=== PATIENT | female | born 1965 | race Caucasian/White ===

== ENCOUNTER 2024-05-11 20:13 | Observation (INO) | payer BC, SELFPAY ==
[2024-05-11 13:16] VITALS: BP 154/97
--- NOTE | 2024-05-11 15:44 | ED.GENMED ---
History of Present Illness
<Lacy Abdullahi PA-C - Last Filed: 05/11/24 22:45>
General
Chief Complaint: Ear Problem
Source: patient
Exam Limitations: none
Time Seen by Provider: 05/11/24 15:44
Nursing documentation reviewed up to this point in time: agreed with
History of Present Illness
History of Present Illness:
This is a 58-year-old female with a past medical history of glaucoma, asthma, who presents today to emergency department with right ear pain and drainage for the past week. Patient originally presented to [facility] and was sent home with
neomycin polymyxin drops with a steroid component. Patient did not receive any oral antibiotics. Patient states that the pain has been getting more intense and she started to have a lot of purulent drainage from the ear. Patient denies any
changes to her hearing. Patient states that she had a fever at home, she does not recall the temperature at the time. Patient denies any cough or upper respiratory symptoms. Denies any chest pain. Denies any difficulty breathing or difficulty
swallowing. She states that she also has a lot of pain behind the ear as well.
Past History
<Lacy Abdullahi PA-C - Last Filed: 05/11/24 22:45>
Past History
ED Past Medical History: Asthma, GERD and Other (Lumbar disc disease, RSD)
ED Past Surgical History: Gynecological (D&C, ovarian cyst removal) and Other (Epidural steroid injections and nerve blocks, lumbar spine, 1994)
Social History
Tobacco: Non-smoker
Alcohol: Occasional
Drug: None
Personal: Other (Noncontributory)
Living: with family
Employment: Employed
Family History
Family History: Asthma and Other
Review of Systems
<Lacy Abdullahi PA-C - Last Filed: 05/11/24 22:45>
Review of Systems
All Other Systems: ROS reviewed and negative except as documented in HPI and ROS
Phy Exam
<JENNIFER Hargrove Last Filed: 05/11/24 22:45>
Physical Exam
Physical Exam:
General: Patient is well appearing and in no acute distress; non-toxic
Skin: Warm and dry, no rashes or lesions
Head: Tenderness to palpation of the right mastoid process with some mild erythema noted
Eyes: Sclera non-icteric. EOMs intact.
Ears: Swelling noted to right external ear canal, unable to visualize right tympanic membrane, purulent drainage noted from right canal
Cardiac: Tachycardia noted otherwise regular rhythm, no murmurs
Peripheral Vascular: No lower extremity swelling or edema
Pulm: Normal respiratory effort, no wheezes, rales, rhonchi
Neuro: CN II-XII intact, no focal neurologic deficits.
Psychiatric: Appropriate mood and affect.
Course
<JENNIFER Hargrove Filed: 05/11/24 22:45>
Orders/Labs/Results
Orders:
Orders
05/11/24 Dinner
Regular
At Your Request: Full Participation
05/11/24 15:54
CT Facial Bones W/ Iv Contrast Urgent
Comment:
Reason For Exam: right mastoid pain/swelling
Ibuprofen [Motrin] 600 mg PO NOW STA
05/11/24 16:32
Basic Metabolic Panel Urgent
Complete Blood Count/With Diff Urgent
05/11/24 18:22
Acetaminophen [Tylenol] 1,000 mg PO NOW STA
05/11/24 18:32
Oxycodone/Acetaminophen [Percocet 5/325] 1 tablet PO NOW STA
05/11/24 18:34
Oxycodone/Acetaminophen [Percocet 5/325] 1 tablet .ROUTE .STK-MED ONE
05/11/24 19:21
0.9% Sodium Chloride 500 ml [Nss] 500 ml IV BOLUS
Dexamethasone Sod Phosphate [Decadron] 10 mg IV NOW STA
Morphine Sulfate 4 mg IV NOW STA
Piperacillin/Tazo 4.5 Gram [Zosyn] 4.5 gram in 100 ml IV NOW
05/11/24 19:34
Ciprofloxacin HCl [Cipro] 2 dropperett OTIC NOW STA
05/11/24 19:57
Admit/Transfer Patient As Directed
Co-Sign Provider:
Level of Care: Observation services
Assign to:: Medical/Surgical
Physician / Group: hospitalist
Diagnosis: right otomastoiditis
Code Status As Directed
Resuscitation Status: Full Code
PRN Pain Medication Management As Directed
May give lesser potent ordered pain med per pt: Yes
preference::
Protocol:: Medication orders for pain may be administered in a
manner that supports deferring to patient preference
when the pt is:
- Requesting an ordered lesser potent pain medication.
Least to most potent pain medications are defined
as: acetaminophen < NSAID < tramadol < opioids
(morphine, oxycodone, hydromorphone).
- Requesting a lesser dose of the same medication IF
ORDERED.
- Requesting a less intrusive route of administration
if both routes are prescribed by the provider (PO <
IV).
05/11/24 21:22
Acetaminophen [Tylenol] 650 mg PO Q4HPRN PRN
Albuterol [ProAIR HFA INHALER] 2 puff INH R Q6HPRN PRN
Bisacodyl [Dulcolax] 10 mg RECTAL [id number] PRN
Docusate W/Senna [Senokot-S] 1 tablet PO BIDPRN PRN
Fluticasone/Salmeterol 115/21 [Advair Hfa 115/21 Mcg Inhaler] 2 puff INH R BID
Ketorolac [Toradol] 10 mg IV Q6HPRN PRN
Polyethylene Glycol Powder [Miralax] 17 grams PO DAILYPRN PRN
05/11/24 21:22
ENT CONSULT Routine
Consulting Provider: Cliff Lucero
Was physician already notified: Yes
Reason for Consult: right malignant otitis media
Activity As Directed
Activity Level: As Tolerated
Pneumatic Compression Sleeves As Directed
Type: Knee high
Vital Signs As Directed
Frequency: Per unit guidelines
DX Deep Vein Thrombosis Video Routine
05/12/24 02:00
Piperacillin/Tazo 3.375 Gram [Zosyn] 3.375 gram in 50 ml IV Q6H
05/12/24 04:00
Dexamethasone Sod Phosphate [Decadron] 6 mg IV Q8H
Abnormal Lab Results
05/11/24
16:32
WBC 12.2 H 10^3/uL
(4.8-10.8)
Abs Immat Gran (auto) 0.1 H 10^3/uL
(0-0.05)
Absolute Neuts (auto) 10.1 H 10^3/uL
(1.4-6.5)
Absolute Lymphs (auto) 1.0 L 10^3/uL
(1.2-3.4)
Absolute Monos (auto) 0.8 H 10^3/uL
(0.1-0.6)
Immature Gran % 0.8 H %
(0-0.5)
Neutrophils % 82.7 H %
(42.2-75.2)
Lymphocytes % 7.8 L %
(20.5-51.1)
Chloride 97 L mmol/L
(98-107)
Glucose 108 H mg/dl
(70-99)
05/11/24 16:32
05/11/24 16:32
Vital Signs
Initial and Last Documented VS:
Initial Vital Signs
Temp Pulse Resp BP Pulse Ox
98.2 F 105 16 154/97 95
05/11/24 13:16 05/11/24 13:16 05/11/24 13:16 05/11/24 13:16 05/11/24 13:16
Last Documented Vital Signs
Temp Pulse Resp BP Pulse Ox
98.0 F 61 16 144/74 95
05/11/24 21:31 05/11/24 21:45 05/11/24 21:45 05/11/24 18:38 05/11/24 21:45
<Tasha Lyons MD - Last Filed: 05/11/24 16:05>
Orders/Labs/Results
Orders:
Orders
05/11/24 Dinner
Regular
At Your Request: Full Participation
05/11/24 15:54
CT Facial Bones W/ Iv Contrast Urgent
Comment:
Reason For Exam: right mastoid pain/swelling
Ibuprofen [Motrin] 600 mg PO NOW STA
05/11/24 16:32
Basic Metabolic Panel Urgent
Complete Blood Count/With Diff Urgent
05/11/24 18:22
Acetaminophen [Tylenol] 1,000 mg PO NOW STA
05/11/24 18:32
Oxycodone/Acetaminophen [Percocet 5/325] 1 tablet PO NOW STA
05/11/24 18:34
Oxycodone/Acetaminophen [Percocet 5/325] 1 tablet .ROUTE .STK-MED ONE
05/11/24 19:21
0.9% Sodium Chloride 500 ml [Nss] 500 ml IV BOLUS
Dexamethasone Sod Phosphate [Decadron] 10 mg IV NOW STA
Morphine Sulfate 4 mg IV NOW STA
Piperacillin/Tazo 4.5 Gram [Zosyn] 4.5 gram in 100 ml IV NOW
05/11/24 19:34
Ciprofloxacin HCl [Cipro] 2 dropperett OTIC NOW STA
05/11/24 19:57
Admit/Transfer Patient As Directed
Co-Sign Provider:
Level of Care: Observation services
Assign to:: Medical/Surgical
Physician / Group: hospitalist
Diagnosis: right otomastoiditis
Code Status As Directed
Resuscitation Status: Full Code
PRN Pain Medication Management As Directed
May give lesser potent ordered pain med per pt: Yes
preference::
Protocol:: Medication orders for pain may be administered in a
manner that supports deferring to patient preference
when the pt is:
- Requesting an ordered lesser potent pain medication.
Least to most potent pain medications are defined
as: acetaminophen < NSAID < tramadol < opioids
(morphine, oxycodone, hydromorphone).
- Requesting a lesser dose of the same medication IF
ORDERED.
- Requesting a less intrusive route of administration
if both routes are prescribed by the provider (PO <
IV).
05/11/24 21:22
Acetaminophen [Tylenol] 650 mg PO Q4HPRN PRN
Albuterol [ProAIR HFA INHALER] 2 puff INH R Q6HPRN PRN
Bisacodyl [Dulcolax] 10 mg RECTAL [id number] PRN
Docusate W/Senna [Senokot-S] 1 tablet PO BIDPRN PRN
Fluticasone/Salmeterol 115/21 [Advair Hfa 115/21 Mcg Inhaler] 2 puff INH R BID
Ketorolac [Toradol] 10 mg IV Q6HPRN PRN
Polyethylene Glycol Powder [Miralax] 17 grams PO DAILYPRN PRN
05/11/24 21:22
ENT CONSULT Routine
Consulting Provider: Cliff Lucero
Was physician already notified: Yes
Reason for Consult: right malignant otitis media
Activity As Directed
Activity Level: As Tolerated
Pneumatic Compression Sleeves As Directed
Type: Knee high
Vital Signs As Directed
Frequency: Per unit guidelines
DX Deep Vein Thrombosis Video Routine
05/12/24 02:00
Piperacillin/Tazo 3.375 Gram [Zosyn] 3.375 gram in 50 ml IV Q6H
05/12/24 04:00
Dexamethasone Sod Phosphate [Decadron] 6 mg IV Q8H
Abnormal Lab Results
05/11/24
16:32
WBC 12.2 H 10^3/uL
(4.8-10.8)
Abs Immat Gran (auto) 0.1 H 10^3/uL
(0-0.05)
Absolute Neuts (auto) 10.1 H 10^3/uL
(1.4-6.5)
Absolute Lymphs (auto) 1.0 L 10^3/uL
(1.2-3.4)
Absolute Monos (auto) 0.8 H 10^3/uL
(0.1-0.6)
Immature Gran % 0.8 H %
(0-0.5)
Neutrophils % 82.7 H %
(42.2-75.2)
Lymphocytes % 7.8 L %
(20.5-51.1)
Chloride 97 L mmol/L
(98-107)
Glucose 108 H mg/dl
(70-99)
05/11/24 16:32
05/11/24 16:32
Vital Signs
Initial and Last Documented VS:
Initial Vital Signs
Temp Pulse Resp BP Pulse Ox
98.2 F 105 16 154/97 95
05/11/24 13:16 05/11/24 13:16 05/11/24 13:16 05/11/24 13:16 05/11/24 13:16
Last Documented Vital Signs
Temp Pulse Resp BP Pulse Ox
98.0 F 61 16 144/74 95
05/11/24 21:31 05/11/24 21:45 05/11/24 21:45 05/11/24 18:38 05/11/24 21:45
<Lacy Abdullahi PA-C - Last Filed: 05/11/24 22:45>
MDM/Problems Addressed
Differential Diagnosis Includes:
See below
MDM/Problems Addressed:
NUMBER AND COMPLEXITY OF PROBLEMS ADDRESSED AT THE ENCOUNTER
� Chronic conditions affecting care: Asthma, glaucoma
� Acute Exacerbation and/or Progression of Chronic Illness: N/A
� Differential Diagnosis includes: Malignant otitis external, acute otitis media, mastoiditis, otitis,
AMOUNT AND/OR COMPLEXITY OF DATA TO BE REVIEWED AND ANALYZED
CT: Reviewed CAT scan report, shows mastoiditis
X-rays: N/A
Laboratory Studies: Leukocytosis noted with left shift
Other:
� Review of other/old records: Reviewed previous discharge summary from asthma exacerbation from 09/05/2015
RISK OF COMPLICATIONS AND/OR MORBIDITY OR MORTALITY OF PATIENT MANAGEMENT
� Social determinants of health affecting care: N/A
� Discussion with other providers: ER attending
� Escalation of care including admission/observation vs risk of discharge considered:
58-year-old female presents emergency department today with concerns of persistent right ear pain and purulent drainage following treatment with eardrops drops for an ear infection. Physical exam, she appears uncomfortable secondary to pain she has
purulent drainage noted from the right ear, and need full to visualize TM. She has a lot of mastoid tenderness on the right. She was sent for CAT scan which reveals otitis and mastoiditis. I consulted ENT. I started Zosyn and we also gave Cipro
eardrops as well. Patient referred for admission.
<Lacy Abdullahi PA-C - Last Filed: 05/11/24 22:45>
*Critical Care Note
Total Time (30-74mins, 75-104mins- exclusive of procedures): Not Applicable
ED Attending Note
<Lacy Abdullahi PA-C - Last Filed: 05/11/24 22:45>
-
Portions of this chart may have been created with voice recognition software.� Occasional wrong word or��sound alike� substitutions may have occurred due to the inherent limitations of voice recognition software.
<Tasha Lyons MD - Last Filed: 05/11/24 16:05>
ED Attending Note
Patient seen and examined by attending physician: Yes
I performed the substantive portion of visit, reviewed & personally made and approve the management plan that is documented in note by myself or SEPIDEH.: Yes
ED Attending Note:
Patient has bloody drainage coming out of right ear with concerns for right ear cellulitis and mastoid tenderness on palpation. Patient awaiting CAT scan to check for mastoiditis
Discharge Plan
Departure
Patient Disposition: Admit
Date of Disposition: 05/11/24
Time of Disposition: 19:26
Admit to: Med/Surg
Presentation/result/management discussed w/ accepting MD/DO: Hospitalist
Condition: Fair
Discharge Problem:
Malignant otitis media of right ear
Interventions
Interventions:
*Risk Screen - Suicide Last Done: 05/11/24 13:19
*Neglect/Abuse Screening Last Done: 05/11/24 13:19
ED- Fall Risk Assessment Last Done: 05/11/24 17:59
*ED COVID-19 Vaccine History Last Done: 05/11/24 13:19
*Nursing Disposition Last Done: 05/11/24 21:17
Discharge Date and Time
Discharge Date/Time: 05/11/24 21:18
[2024-05-11] MEDS: MOTRIN 600 MG PO (16:12)
[2024-05-11 16:39] LABS: % Basophils 0.6 % (0-2); % Eosinophils 1.9 % (0-6); % Immature Granulocytes 0.8 % (0-0.5); % Lymphocytes 7.8 % (20.5-51.1); % Monocytes 6.2 % (1.7-9.3); % Neutrophils 82.7 % (42.2-75.2); Absolute Basophils 0.1 10^3/uL (0-0.2); Absolute Eosinophils 0.2 10^3/uL (0-0.7); Absolute Immature Granulocytes 0.1 10^3/uL (0-0.05); Absolute Monocytes 0.8 10^3/uL (0.1-0.6); Absolute Neutrophils 10.1 10^3/uL (1.4-6.5); Hematocrit 42.5 % (37.0-47.0); Hemoglobin 14.2 g/dL (12.0-16.0); Mean Corp Hgb Conc. 33.4 g/dL (33.0-37.0); Mean Corpuscular Hgb 27.2 pg (27.0-31.0); Mean Corpuscular Volume 81.4 fL (81.0-99.0); Mean Platelet Volume 9.8 fL (7.4-10.4); Nucleated Red Blood Cells % 0 %; Platelet Count 217 10^3/uL (130-400); Red Blood Cell Count 5.22 10^6/uL (4.20-5.40); Red Cell Dist. Width 12.5 % (11.5-14.5); White Blood Cell Count 12.2 10^3/uL (4.8-10.8)
[2024-05-11 17:00] LABS: Blood Urea Nitrogen 16 mg/dl (7-17); Calcium 9.3 mg/dl (8.4-10.2); Carbon Dioxide 26 mmol/L (22-30); Chloride 97 mmol/L (98-107); Glucose 108 mg/dl (70-99); Sodium 137 mmol/L (135-145); eGFR > 60.00
[2024-05-11] MEDS: PERCOCET 5/325 1 TABLET PO (18:34)
[2024-05-11 18:38] VITALS: BP 144/74
[2024-05-11] MEDS: DECADRON 10 MG IV (19:39)
[2024-05-11] MEDS: ZOSYN 100 IV (19:40)
[2024-05-11] MEDS: MORPHINE SULFATE 4 MG IV (19:41)
[2024-05-11] MEDS: NSS 500 IV (19:41)
--- NOTE | 2024-05-11 19:46 | HPS.HSE ---
Family Physician
-
Family Physician: Cliff Roberto
Chief Complaint
-
Right ear pain and drainage
History of Present Illness
This is a 58-year-old female with past medical history significant for asthma, GERD and glaucoma who presents to the emergency department with painful right ear with drainage.
Associated developed headache and sinus congestion about 5 days ago. She was seen in urgent care and at that time he was told that she had a right ear infection. She was prescribed right ear topical antibiotics and told to return if symptoms do
not improve. The patient reported that she started getting drainage from the ear however after the second day she developed severe pain in the right hip. She reports that she has some chills. She felt febrile as well. Patient denies any prior
history of ear infections. She has not been in any pulse. She is nondiabetic. She has no recent steroid use.
In the emergency department she was afebrile, blood pressure was 144/74 with pulse of 88. He had a leukocytosis to 12,000 with otherwise normal CBC. Electrolytes BUN/creatinine were within normal limits.
A CT scan of the facial bones showed findings consistent with right otomastoiditis. No evidence to suggest subperiosteal abscess or epidural abscess. Ear wick placed with Cipro drops by ED. ENT consulted. Patient started on IV antibiotics.
Medical History
Past Medical History
Past Medical History: Reports Asthma
Additional Past Medical History:
Glaucoma
Past Surgical History: Reports Gynocological (hysterectomy)
Social History
Tobacco: Non-smoker
Alcohol: None
Drug: None
Living: With Family
Employment: Employed
Family History
Family History: CAD, Cancer (Renal Cell Ca, Endometrial Ca) and Diabetes
Allergies / Home Medications
Allergies reflects when Allergies were last updated in [facility].
Home Medications with original date entered in [facility]
Allergy/Medication List:
Allergies
Allergy/AdvReac Type Severity Reaction Status Date / Time
pseudoephedrine HCl Allergy Shortness Verified 09/01/15 04:19
[From Sudafed] of Breath
theophylline Allergy HIVES, Verified 09/01/15 04:19
trouble
breathing
bee Allergy Anaphylaxis Uncoded 09/01/15 08:29
CATS Allergy Shortness Uncoded 09/01/15 04:19
of
Breath,HIVES
DUST Allergy Unknown Uncoded 09/01/15 04:19
BLAIR Allergy SNEEZING Uncoded 09/01/15 04:19
MOLDS Allergy Unknown Uncoded 09/01/15 04:19
Trees Allergy sneezing;itchy Uncoded 09/01/15 04:19
eyes
vaccines Allergy developed Uncoded 09/01/15 04:19
[place]
syndrome
Home Medications
albuterol sulfate 90 mcg/actuation aerosol inhaler 2 puff inhalation R Q6HPRN PRN sob 05/11/24
fluticasone 250 mcg-salmeterol 50 mcg/dose blistr powdr for inhalation (Advair Diskus) 1 inh inhalation R BID 05/11/24
ibuprofen 200 mg tablet (Advil) 400 mg PO Q8HPRN PRN mild pain 05/11/24
ngfjvxcp-wnacwkxd-nsa C 250 mg-herbal no.124 11.66 mg chewable tablet (Airborne Gummy) 1 tab PO DAILY 05/11/24
hxbcqoym-hsjyizzhr-qnhbjivga 3.5 mg-10,000 unit/mL-1 % ear drops,susp 3 drp RIGHT EAR TID 05/11/24
Review of Systems
-
History Source: Patient
Constitutional: Reports No Symptoms
EENT: Reports Other (Right ear pain and drainage)
Respiratory: Reports No Symptoms
Cardiac: Reports No Symptoms
Abdomen/GI: Reports No Symptoms
: Reports No Symptoms
Musculoskeletal: Reports No Symptoms
Skin: Reports No Symptoms
Neurological: Reports Headache
Endocrine: Reports No Symptoms
Hematologic/Lymphatic: Reports No Symptoms
Psych: Reports No Symptoms
Physical Exam
Vital Signs
Vital Signs
Temp Pulse Resp BP Pulse Ox
98.2 F 88 22 144/74 96
05/11/24 13:16 05/11/24 18:38 05/11/24 18:38 05/11/24 18:38 05/11/24 18:38
Physical Exam
General: Well Developed, Well Nourished, Comfortable, Conversant and Pain
HEENT: NormoCephalic, Anicteric, Moist mucous membranes, Atraumatic, PERRLA, Oblong Conjunctivae and Other (some erythema behind the right ear/mastoid process with tenderness to palpation. No fluctuance. No abscess. )
Respiratory: Clear
Cardiac: S1/S2 and Regular Rhythm
Breast: Deferred by me
GI: Soft
Rectal: Deferred by Provider
Genito-urinary: Deferred by me
Musculoskeletal: No Clubbing and No Cyanosis
Skin: Warm
Neuro: AO x 3
Hematologic/Lymphatic: No Lymphadenopathy
Psych: Calm
Laboratory Results
-
05/11/24 16:32
05/11/24 16:32
Laboratory Results
Total Bilirubin Cancelled 05/11/24 16:32
AST Cancelled 05/11/24 16:32
ALT Cancelled 05/11/24 16:32
Alkaline Phosphatase Cancelled 05/11/24 16:32
Data Reviewed
-
CT Scan: Report Reviewed by me
Lab Data: Labs Reviewed by me
Old Records: Reviewed
Impression/Plan
-
IMPRESSION:
Right suppurative otitis media, mastoiditis on CT scan. Well appearing and in no acute distress.
PLAN:
1. Right ostomastoiditis - No exam evidence of abscess. No CT scan evidence of abscess.
- admit to med/surg
- IV zosyndwayne with cipro drops placed in ED.
- ENT consulted for possible drainage and additional care
- pain control
2. Asthma - Stable
- continue Advair and prn albuterol
DVT PPX - SCDs
Code status - Full Code
--- NOTE | 2024-05-11 20:04 | CON.MD ---
Consultation - Medical
-
R otitis media
58 yo c asthma, glaucoma, no DM presents c 4 day Hx of R ear pain and decreased hearing
Was initially placed on ear drops, ear began draining, no prior ear Hx
PE - Nontoxic appearing
R ear c some purulent drainage obscuring TM
Some mastoid tenderness
Tuning forks suggest R conductive loss
Facial nerve intact
CT reviewed - R mastoid opacification but no evidence of subperiosteal abscess
A/P R otitis media /mastoiditits
Spontaneously draining
Agree c IV Zosyn and otic drops
No need for urgent surgical intervention / drainage
If fails to show signs of improvement over next 48 hrs, possibly would place myringotomy in R eardrum
[2024-05-11] MEDS: CIPRO 2 DROPPERETT OTIC (20:07)
[2024-05-11 21:31] VITALS: BMI 32.2
[2024-05-11] MEDS: ADVAIR HFA 115/21 MCG INHALER 2 PUFF INH (21:42)
[2024-05-11 23:00] VITALS: BP 159/72
[2024-05-11] MEDS: TORADOL 10 MG IV (23:45)
[2024-05-12] MEDS: ZOSYN 50 IV ×4 (02:47→20:02)
[2024-05-12] MEDS: DECADRON 6 MG IV ×3 (03:01→20:02)
[2024-05-12] MEDS: TORADOL 15 MG IV (03:23)
[2024-05-12] MEDS: ADVAIR HFA 115/21 MCG INHALER 2 PUFF INH ×2 (08:18→19:03)
[2024-05-12 08:29] VITALS: BP 142/74
--- NOTE | 2024-05-12 11:36 | W.PN.HOSP.TC ---
Today's Communication/Plan
-
IV steroids
IV abx
monitor for improvement
ENT recs
Assessment / Plan
Assessment / Plan
IMPRESSION:
Right suppurative otitis media, mastoiditis on CT scan. Well appearing and in no acute distress.
PLAN:
1. Right ostomastoiditis - No exam evidence of abscess. No CT scan evidence of abscess.
- IV zosyn, earwick with cipro drops placed in ED.
- ENT consulted -if fails to improve in the next 24 to 36 hours plan for possible myringotomy in R eardrum
- Started on IV decadron 6mg q8h per ENT. pepcid added
- pain control
2. Asthma - Stable
- continue Advair and prn albuterol
DVT PPX - lovenox
Code status - Full Code
Anticipated Discharge: 24 - 48 hours
Subjective/Interval History
-
Date of Service: May 12, 2024
Remains with R ear pain and fullness
states R ear drainage continues
R ear pain has improved
no fevers
mild hearing difficulty on R side
Objective Data
-
Vital Signs:
Vital Signs
Temp Pulse Resp BP Pulse Ox
98 F 85 19 142/74 94
05/12/24 08:29 05/12/24 08:29 05/12/24 08:29 05/12/24 08:29 05/12/24 08:29
I&O
05/11/24 05/12/24 05/13/24
06:59 06:59 06:59
Intake Total 600 / 600
Balance 600 / 600
Physical Exam
-
General: Well Developed and No Apparent Distress
HEENT: Normocephalic, Atraumatic, Moist Mucous Membranes and Other (R mastoid area TTP. Drainage noted from R ear. )
Respiratory: Clear to Auscultation
Cardiac: Regular Rhythm and S1/S2; Negative Murmur, Rub or Gallop
GI: Soft, Nontender, Nondistended and Normal Bowel Sounds; Negative Organomegaly
Rectal: Deferred by Provider
Musculoskeletal: No Clubbing, No Cyanosis and No Edema
Skin: Negative Rash
Neuro: Awake, Alert, Oriented, AO x 3, No Motor Deficits and Nonfocal/Grossly Intact
Psych: Calm
[2024-05-12] MEDS: TORADOL 10 MG IV (13:28)
--- NOTE | 2024-05-12 16:45 | CM ---
Addendum entered by Nano Cox 05/12/24 16:53:
ENT is consulted
Original Note:
CM reviewed chart. Patient here for right mastoiditis. CM introduced self and role. She lives in apartment with her children. She is independent. She drives. Her son will provide transportation once she is discharged from the hospital. She owns a
walker, cane and wheelchair. She works FT in mental health. She has an active PCP and pharmacy. She denies any +SDOHs.
ANTICIPATED DISCHARGE PLAN: Home with children, when medically cleared.
[2024-05-12 16:48] VITALS: BP 143/69
[2024-05-12 22:56] VITALS: BP 139/75
[2024-05-13] MEDS: TORADOL 10 MG IV (00:41)
[2024-05-13] MEDS: ZOSYN 50 IV ×3 (02:49→13:05)
[2024-05-13] MEDS: DECADRON 6 MG IV ×2 (04:47→12:56)
[2024-05-13 06:47] VITALS: BP 132/76
[2024-05-13] MEDS: ADVAIR HFA 115/21 MCG INHALER 2 PUFF INH (07:53)
[2024-05-13] MEDS: PEPCID 20 MG PO (08:16)
--- NOTE | 2024-05-13 12:29 | W.PN.UPDATE ---
Update Note
Progress Note Update
Pt feeling better, less pain
Afebrile
Ear still draining
PE - Purulent drainage in R ear canal
Mastoid area with much less tenderness, no cellulitis, improved erythema
A/P R otitis media
Improving
Culture taken of ear drainage
Would continue with IV antibx and ear drops
If continues to do well, can d/c later today or tomorrow on po Augmentin 875 BID and Cipro ear drops 4 drops BID , both for total of 10 days
and follow up in office later this week
[2024-05-13 12:40] VITALS: BP 130/70
--- NOTE | 2024-05-13 12:42 | W.PN.HOSP.TC ---
Today's Communication/Plan
-
Transition to oral Augmentin and ciprofloxacin eardrops for 12 more days
Continue with oral steroid for 7 days after discharge
Discharge, follow-up with PCP
Assessment / Plan
Assessment / Plan
IMPRESSION:
Right suppurative otitis media, mastoiditis on CT scan. Well appearing and in no acute distress.
PLAN:
1. Right ostomastoiditis - No exam evidence of abscess. No CT scan evidence of abscess.
- IV zosyn, earwick with cipro drops placed in ED.
- ENT consulted -if fails to improve in the next 24 to 36 hours plan for possible myringotomy in R eardrum
- Started on IV decadron 6mg q8h per ENT. pepcid added
- pain control
- Discharge on oral Augmentin and ciprofloxacin eardrops for 12 more days
- Continue with oral dexamethasone 4 mg daily for 7 days
- ENT referral provided if needed, should follow-up with PCP in 1 to 2 weeks
2. Asthma - Stable
- continue Advair and prn albuterol
DVT PPX - lovenox
Code status - Full Code
Anticipated Discharge: Today
Subjective/Interval History
-
Date of Service: May 13, 2024
Seen and examined at bedside. No acute reported overnight. AFVSS this morning
States that her pain is much improved, asked if she is able to go home today
Objective Data
-
Vital Signs:
Vital Signs
Temp Pulse Resp BP Pulse Ox
98.0 F 75 16 132/76 95
05/13/24 06:47 05/13/24 07:55 05/13/24 07:55 05/13/24 06:47 05/13/24 07:55
I&O
05/12/24 05/13/24 05/14/24
06:59 06:59 06:59
Intake Total 600 / 600 720 / 720
Balance 600 / 600 720 / 720
Review of Systems
-
History Source: Patient
All other systems: Reviewed and negative
Physical Exam
-
General: Well Developed, Well Nourished, No Apparent Distress and Comfortable
HEENT: Normocephalic, Atraumatic, Moist Mucous Membranes and Other (Mild tenderness to mastoid and tragus, serosanguineous discharge from right EAM)
Respiratory: Clear to Auscultation and Non Labored Respirations
Cardiac: Regular Rhythm and S1/S2; Negative Murmur, Rub or Gallop
GI: Soft, Nontender, Nondistended and Normal Bowel Sounds
Musculoskeletal: No Clubbing, No Cyanosis and No Edema
Skin: Warm and Dry; Negative Rash
Neuro: AO x 3 and Nonfocal/Grossly Intact
Psych: Calm
Data Reviewed
-
Labs: Labs Reviewed by me, Discussed with Physician and Discussed with Patient
--- NOTE | 2024-05-13 12:56 | CM ---
MD entered order for discharge.
Spoke with pt she said her son Rahat will drive her home at dc.
She will follow up with PCP and ENT after dc.
Offered Vn she declined need.
PLAn Home no needs
--- NOTE | 2024-05-13 17:11 | W.DCSUMMARY ---
Discharge Summary
Discharge Data
Date of Admission: 05/11/24
Date of Discharge: 05/13/24
-
Pending Results: Yes
Additional Pending Results:
Right ear aspirate Gram stain and culture
Hospital Course
58-year-old female with GERD, asthma, s/p CHELY that presented with right ear pain, found to have right otomastoiditis on imaging. CT without signs of abscess. Was started on IV Zosyn and ciprofloxacin otic drops. Evaluated by otolaryngology in the
hospital who recommended starting steroid. Conversation had about myringotomy tube however patient clinically improved and this was not pursued. Following her clinical improvement and resolution of leukocytosis, was transition to oral Augmentin.
Plan to continue Augmentin twice daily, ciprofloxacin otic drops twice daily for additional 12 days after discharge to complete 14 days of antibiotics. Was given 7-day course of steroid and Toradol for symptomatic relief. Appointment scheduled
with ENT for 05/14/2024 in office for further ear aspiration/suction. Given prescription for Pepcid while on steroid regimen.
Discharge Plan
-
Patient Disposition: Home (Routine Discharge)
Discharge Diagnosis/Procedures: Otomastoiditis
Condition: Good
Diet: No restrictions
Activity: As tolerated
Driving Restrictions: No driving for 24 hours
Bathing Restrictions: OK to Shower
Activity Restrictions/Additional Instructions:
Schedule follow-up appointment with your family doctor, should be seen within 1 to 2 weeks of discharge from the hospital
Referral provided for ENT if needed
Instructions: Mastoiditis
Referrals:
Cliff Roberto DO [Family Provider] -
Cliff Lucero MD [Active] - As needed (If needed for persistent symptoms)
Additional Discharge Medication Instructions: Take Augmentin (amoxicillin/clavulanate) twice daily for 12 days after discharge
Take ciprofloxacin 0.2% eardrops, 1 drop twice daily for 12 more days
Continue dexamethasone 4 mg daily for 7 days
Continue famotidine 20 mg for 7 days
Prescriptions:
New
ciprofloxacin HCl 0.2 % Dropperette
1 drp otic (ear) Q12 12 Days Qty: 14 1RF
famotidine 20 mg Tablet
20 mg PO DAILY 7 Days Qty: 7 0RF
dexamethasone 4 mg tablet
4 mg PO DAILY 7 Days Qty: 7 0RF
amoxicillin-pot clavulanate 875-125 mg tablet
1 tab PO Q12H 12 Days Qty: 24 0RF
ketorolac 10 mg tablet
10 mg PO Q8H PRN (Reason: Pain) Qty: 30 0RF
Rx Instructions:
maximum total duration of 5 days from all oral, intranasal, or parenteral formulations
Continued
fluticasone propion-salmeterol [Advair Diskus] 250-50 mcg/dose Blister With Device
1 inh INHALATION R BID
albuterol sulfate 90 mcg/actuation Hfa Aerosol Inhaler
2 puff INHALATION R Q6HPRN PRN (Reason: sob)
Airborne Gummy 250-11.66 mg Tablet,Chewable
1 tab PO DAILY
Discontinued
ibuprofen [Advil] 200 mg Tablet
400 mg PO Q8HPRN PRN (Reason: mild pain)
vqowipvn-jdtqehrpe-UM 3.5-10,000-1 mg/mL-unit/mL-% drops,suspension
3 drp RIGHT EAR TID
Discharge Orders:
Discharge Patient (As Directed); Ordered 05/13/24
Ordered By: Israel Mejias
Discharge Date and Time
Discharge Date/Time: 05/13/24 14:25
Print Language: ESTONIAN
== END 2024-05-13 14:25 | disposition home or self-care (01) ==
LOC: 3 WEST ACU 20:13
PROVIDERS: Physician Assistant; ADMITTING PHYSICIAN Internal Medicine; ATTENDING PHYSICIAN Internal Medicine; CONSULT PHYSICIAN Otolaryngology; EMERGENCY PHYSICIAN Emergency Medicine; FAMILY PHYSICIAN Family Medicine
DX: H66.41 Suppurative otitis media, unspecified, right ear (principal); H70.91 Unspecified mastoiditis, right ear; H92.01 Otalgia, right ear; J45.909 Unspecified asthma, uncomplicated; H40.9 Unspecified glaucoma; K21.9 Gastro-esophageal reflux disease without esophagitis; Z83.3 Family history of diabetes mellitus; Z82.49 Family history of ischemic heart disease and other diseases of the circulatory system; Z88.7 Allergy status to serum and vaccine; Z88.8 Allergy status to other drugs, medicaments and biological substances; Z91.030 Bee allergy status; Z79.51 Long term (current) use of inhaled steroids
CPT/HCPCS: 70487; 80048; 85025; 87070; 87077; 87147; 87205; 94640; 96365; 96375; 99284; G0378; Q9967